=== PATIENT | male | born 1985 | race Caucasian/White ===

== ENCOUNTER 2025-09-26 11:33 | Emergency (ER) | payer OTHER, SELFPAY ==
--- NOTE | 2025-09-26 11:44 | ED_ITS ---
HPI - Skin/Abscess/Foreign Bdy General Chief complaint: Skin/Abscess/Foreign Body Stated complaint: poison oak patient presents to the [facility] with complaints of poison oak rash that began about 1 week ago. Patient noted very sensitive to this in usually needs an injection of steroids to get rid of this. Has been using topical h ydrocortisone as well as [id number] poison oak medications without relief of symptoms. Patient denies any tongue swelling, lip swelling, shortness of breath, or colored drainage from the area Related Data Home Medications ?Medication ?Instructions ?Recorded ?Confirmed ?Last Taken ?Type dextroamphetamine-amphetamine 10 09/26/25 Unknown Hi story mg tablet Allergies Allergy/AdvReac Type Severity Reaction Status Date / Time No Known Allergies Allergy Verified 09/26/25 11:47 Review of Systems Constitutional: Constitutional: Reports as per HPI, Denies chills, Denies fatigue, Denies fever(s) and Denies weakness Eyes: Eyes: Reports no additional eye complaints ENT: Reports system reviewed and no additional complaints, except as documented Cardiovascular: Cardiovascular: Reports no additional cardiovascular complaints Respiratory: Respiratory: Reports no additional respiratory complaints Gastrointestinal: Gastrointestinal: Reports no additional gastrointestinal complaints Genitourinary: Genitourinary: Reports no additional male genitourinary complaints Musculoskeletal: Musculoskeletal: Reports as per HPI, Denies back pain, Denies myalgias, Denies arthralgias and Denies joint swelling Integumentary/Breasts: Skin/Breast: Reports as per HPI, Reports pruritus, Reports erythema, Reports rash and Denies skin ulcer Neurologic: Reports as per HPI, Denies vertigo, Denies dizziness, Denies headache(s) and Denies weakness Psychiatric: Psychiatric: Reports no additional psychiatric complaints Endocrine: Endocrine: Reports no additional endocrine complaints Hematologic/Lymphatic: Hematologic/Lymphatic: Reports no additional hematologic/lymphatic complaints Allergic/Immunologic: Allergic/Immunologic: Reports no additional a llergic/immunologic complaints Exam Const: General: healthy appearing and no acute distress Nutritional Appearance: well nourished Orientation/consciousness: patient oriented x3 Limitations: no limitations HENMT: Mouth: Yes Normal oral and palatal mucosa present, Yes lip normal and Yes moist mucous membranes Eyes: Conjunctivae: conjunctivae normal EOM: EOMs intact bilaterally Direct Ophthalmoscopy: no photophobia Resp: Effort & Inspection: normal respiratory effort Auscultation: clear to auscultation bilaterally Cardio: Rate: regular rate Rhythm: regular rhythm Skin: Rashes: rash noted Wounds: no wounds Other: diffuse red patchy rash noted to bilateral arms, abdomen, back, right leg. no active drainage or crusting noted. Neuro: General: patient oriented x3 Speech: normal speech Gait exam (Neuro): Normal gait present Psych: Mental Status: mental status grossly normal Affect: normal affect Attitude: cooperative Course Course Level of Care: Express Care Visit MDM - Skin/Abscess/Foreign Bdy MDM Narrative Medical decision making narrative: Patient requested steroid injection. Given while at [facility]. Recommended oral steroids to start tomorrow. The patient was evaluated by myself in the [facility] care. History is obtained from patient who is an independent historian and physical exam was performed. Available medical records were reviewed at this time. Exam findings show no acute concerns or changes; patient is non-toxic appearing and is in no distress. Patient is appropriate for outpatient treatment and follow-up. I have evaluated and discussed social determinants of health with the patient that could potentially impact subsequent diagnosis and treatment plans. Differential diagnosis and treatment plan were discussed with the patient. Magdaleno lisa agrees with discussion and after shared medical decision making agrees with plan of care. All questions were answered to the patient's satisfaction. Differential Diagnosis Differential diagnosis: Likely abscess of skin or subcutaneous tissue, viral exanthem, urticaria, herpes zoster, cellulitis, insect bites, impetigo and contact dermatitis Medical Records Attestation: I reviewed the patient's medical records. Discharge Plan Discharge Clinical Impression: Allergic dermatitis due to poison oak Patient Disposition: Home Condition: Stable Instructions: Antibiotic Form, Contact Dermatitis (ED) Additional Instructions: Wash the area with soap and cool water only. Avoid scratching when possible to prevent worsening of the condition and disruption of the skin that could lead to bacterial infection To relieve itching, place a cool washcloth or some ice over the area that itches, rather than scratching Follow up with primary care provider or seek ER if you have trouble breathing, become hoarse, or start wheezing, develops belly cramps, vomiting or feel dizzy. Patient Language: Luxembourgish Prescriptions: New prednisone 10 mg tablet 10 mg PO DIRECTED Qty: 18 0RF Rx Instructions: take 3 tablets for 3 days, 2 tablets for 3 days, 1 tablet for 3 days triamcinolone acetonide 0.1 % cream 1 applic topical TID Qty: 80 0RF No Action dextroamphetamine-amphetamine 10 mg tablet Follow-up/Referrals: UNKNOWN,DOCTOR [Primary Care Provider] Time of Disposition: 11:58
--- OUTSIDE RECORDS SUMMARY | 2025-09-26 11:44 | XMS_ITS | Data Portability ---
Author Organization ELOISE Marino FERNANDEZ Address [address] [facility] ELOISE Pichardo [address] Assessment Encounter Date Assessment Date Assessment LastModified by Organization Details LastModified Time 06/10/2019 06/10/2019 Pt presents with c/o anxiety that is chronic and refractory to historical management. Reports that he has maintained psychotherapy and is interested in resuming medications as he has had consistent, increased anxiety with a panic attack at work this am. Reports EMS was called, he refused transport to hospital and is here for f/u: tmond Not available 06/10/2019 15:57:37 Plan of Treatment Reminders Order Date Submit Date Provider Last Modified By Organization Details Last Modified Time Details Appointments None record ed. Lab lipid panel, serum 2017 018 [facility], [address] [place] [address], [address], [place], [address], 8 16:36:19 CMP, serum or plasma 2017 018 [facility], [address] [place] [address], [facility] [address], [place], [address], 8 16:21:11 protei n electr ophore sis panel, serum or plasma 2017 018 [facility], [address] [place] [address], [address], [place], [address], 8 16:21:12 HbA1c (hemog lobin A1c), blood 2017 018 [facility], [address] [place] [address], [address], [place], [address], 8 16:21:12 CBC w/ auto diff 2017 018 [facility], [address], [address], [place], [address], 8 16:36:17 cultur e, aerobi c, wound 2017 018 kvalleroy [facility], [address], [address], [place], [address], 8 16:52:55 Referral cardio logist referr al 2017 018 [facility], [address], [address], 8 12:59:11 Procedures None record ed. Surgeries None record ed. Imaging None record ed. Medication Orders venlaf axine ER 75 mg capsul e,exte nded releas e 24 hr 2018 019 INTERFACE [facility][id number], [address], [place], [id number], 9 16:50:37 hydrox yzine HCl 25 mg tablet 2018 019 INTERFACE [facility] #[id number], [address], [place], [id number], 9 16:50:38 clonaz epam 1 mg tablet 2018 019 [email or web address] [facility] #04415, [address], [place], [id number], 9 16:45:40 venlaf axine ER 75 mg capsul e,exte nded releas e 24 hr 2018 019 [email or web address] [facility] #21526, [address], [place], [id number], 9 16:38:21 venlaf axine ER 150 mg capsul e,exte nded releas e 24 hr 2018 019 INTERFACE [facility] #13480, [address], [place], [id number], 9 13:52:44 clinda mycin HCl 300 mg capsul e 2017 018 [facility], [address] [place] [address], [id number], 9 11:26:06 Wellbu demetri SR 150 mg tablet , 12 hr sustai iesha-re lease 2017 018 [facility], [address] [place] [address], [id number], 9 11:26:42 hydrox yzine HCl 25 mg tablet 2017 018 [facility], [address] [place] [address], [id number], 9 11:26:16 Bactri m DS 800 mg-160 mg tablet 2017 018 [facility], [address] [place] [address], [id number], 9 11:26:30 triamc inolon e aceton sosa 0.1 % topica l cream 2017 018 [facility], [address] [place] [address], [id number], 8 11:45:41 Patient TargetsNo targets recorded. Patient Instructions Encounter Date Encounter Id Patient Instructions Last Modified By Organization Details Last Modified Time 03/21/2018 [id number] start abx keep RLE clean and dry go to ED if worsens f/u next week Not available 03/21/2018 13:52:33 f/u on RLE cellulitis Not available 03/21/2018 13:52:40 03/26/2018 [id number] tennis elbow: exercises amueth Not available 03/26/2018 17:01:00 golfer's elbow: exercises amueth Not available 03/26/2018 17:01:00 elbow: exercises amueth Not available 03/26/2018 17:01:00 A healthy lifestyle: care instructions amueth Not available 03/28/2018 13:02:10 06/28/2018 [id number] chest pain: care instructions [email or web address] Not available 07/03/2018 22:55:52 learning about staph infection [email or web address] Not available 06/28/2018 16:36:58 06/10/2019 [id number] PHILIP-7 anxiety scale* [email or web address] Not available 06/11/2019 12:42:56 -Always present to ER or Urgent Care with any progession of/alarming symptoms, significant changes in symptoms that are concerning or urgent matters. -Pt to call office with regard to changes if sx not improved or worsens -Discussed actions to take if develop feelings of hurting himself or someone else. -Advised of the number for the national suicide hotline: 7-061-YNLDSNH ( ) tmond Not available 06/10/2019 16:14:57 -Discussed POC; pt to f/u with PCP for further eval of sx, mood and concerns. Pt with severe anxiety; to maintain SNRI meterman and transition to non-benzo anxiolytic -Pt to follow up with routine f/u visit as discussed tmond Not available 06/10/2019 16:16:53 Reason for Referral [employer] Referral for Ch est pain Referring Physician: Jennie Moe, Family Medicine, Encounter Date: 06/28/2018 Results Created Date Observation Date Name Description Value Unit Range Abnormal Flag Note LastModifiedBy Organization Detail LastModifiedTime 03/21/20 18 03/26/2018 cultu re, aerob ic aerobic bacterial culture Final report abnormal Not Available [facility] ([facility]) [address] [facility] [address] [address], [place], [address], 03/26/2018 12:36:38 03/21/20 18 03/26/2018 cultu re, aerob ic result 1 Commen t abnormal Methi cilli n - resis tant Staph yloco ccus aureu s Heavy growt h Based on resis tance to oxaci llin this isola te would be resis tant to all curre ntly avail able beta- lacta m antim icrob ial agent s, with the excep tion of the newer cepha lospo rins with anti- MRSA activ ity, such as Cefta rolin e Not Available [facility] ([facility]) [address] [facility] [address], [place], [address], 03/26/2018 12:36:38 03/21/20 18 03/26/2018 cultu re, aerob ic antimicrobia l susceptibili ty Commen t S = Susce ptibl e; I = Inter media te; R = Resis tant P = Posit zeb; N = Negat zeb MICS are expre ssed in micro grams per mL Antib iotic RSLT# 1 RSLT# 2 RSLT# 3 RSLT# 4 Cipro floxa argentina S Clind amyci n S Eryth romyc in S Genta micin S Levof loxac in S Linez olid S Oxaci llin R Penic illin R Rifam pin S Tetra cycli ne S Trime thopr im/Cornejo lfa S Vanco mycin S Not Available [facility] ([facility]) [address] [facility] [address], [place], [address], 03/26/2018 12:36:38 03/21/20 18 03/22/[address] probl em request problem Commen t A speci men was recei shade for micro biolo gy/vi rolog y testi ng with eithe r an incor rect test numbe r or witho ut a writt en test numbe r. The speci men has been proce ssed accor ding to the defau lt polic y liste d in the Micro biolo gy [place] of the [facility]. Pleas e use the corre ct test numbe rs to assur e optim um proce ssing of the speci mens. Not Available [facility] ([facility]) [address] [place], [address], 03/26/2018 12:36:38 06/29/20 18 06/30/2018 CBC w/ auto diff WBC 7.0 x10e3 /uL 3.4-10 .8 Not Available [facility] ([facility]) [address] [place], [address], 07/01/2018 16:36:17 06/29/20 18 06/30/2018 CBC w/ auto diff RBC 4.48 x10e6 /uL 4.14-5 .80 Not Available [facility] ([facility]) [address] [place], [address], 07/01/2018 16:36:17 06/29/20 18 06/30/2018 CBC w/ auto diff hemoglobin 13.4 g/dL 13.0-1 7.7 Not Available [facility] ([facility]) [address] [place], [address], 07/01/2018 16:36:17 06/29/20 18 06/30/2018 CBC w/ auto diff hematocrit 39.0 % 37.5-5 1.0 Not Available [facility] ([facility]) [address] [place], [address], 07/01/2018 16:36:17 06/29/20 18 06/30/2018 CBC w/ auto diff MCV 87 fL 79-97 Not Available [facility] ([facility]) [address] [place], [address], 07/01/2018 16:36:17 06/29/20 18 06/30/2018 CBC w/ auto diff MCH 29.9 pg 26.6-3 3.0 Not Available [facility] ([facility]) [address] [facility] [address], [place], [address], 07/01/2018 16:36:17 06/29/20 18 06/30/2018 CBC w/ auto diff MCHC 34.4 g/dL 31.5-3 5.7 Not Available [facility] ([facility]) [address] [facility] [address], [place], [address], 07/01/2018 16:36:17 06/29/20 18 06/30/2018 CBC w/ auto diff RDW 14.0 % 12.3-1 5.4 Not Available [facility] ([facility]) [address] [facility] [address], [place], [address], 07/01/2018 16:36:17 06/29/20 18 06/30/2018 CBC w/ auto diff platelets 235 x10e3 /uL 150-37 9 Not Available [facility] ([facility]) [address] [facility], [place], [address], 07/01/2018 16:36:17 06/29/20 18 06/30/2018 CBC w/ auto diff neutrophils 38 % not estab. Not Available [facility] ([facility]) [address] [facility] [address], [place], [address], 07/01/2018 16:36:17 06/29/20 18 06/30/2018 CBC w/ auto diff lymphs 50 % not estab. Not Available [facility] ([facility]) [address] [facility] [address], [place], [address], 07/01/2018 16:36:17 06/29/20 18 06/30/2018 CBC w/ auto diff monocytes 10 % not estab. Not Available [facility] ([facility]) [address] [facility] [address], [place], [address], 07/01/2018 16:36:17 06/29/20 18 06/30/2018 CBC w/ auto diff eos 1 % not estab. Not Available [facility] ([facility]) [address] [facility] [address], [place], [address], 07/01/2018 16:36:17 06/29/20 18 06/30/2018 CBC w/ auto diff basos 1 % not estab. Not Available [facility] ([facility]) [address] [facility] [address], [place], [address], 07/01/2018 16:36:17 06/29/20 18 06/30/2018 CBC w/ auto diff immature cells [employer] Not Available [facility] ([facility]) [address] [facility] [address], [place], [address], 07/01/2018 16:36:17 06/29/20 18 06/30/2018 CBC w/ auto diff neutrophils (absolute) 2.7 x10e3 /uL 1.4-7. 0 Not Available [facility] ([facility]) [address] [facility], [place], [address], 07/01/2018 16:36:17 06/29/20 18 06/30/2018 CBC w/ auto diff lymphs (absolute) 3.5 x10e3 /uL 0.7-3. 1 above high normal Not Available [facility] ([facility]) [address] [facility] [address], [place], [address], 07/01/2018 16:36:17 06/29/20 18 06/30/2018 CBC w/ auto diff monocytes(ab solute) 0.7 x10e3 /uL 0.1-0. 9 Not Available [facility] ([facility]) [address] [place], [address], 07/01/2018 16:36:17 06/29/20 18 06/30/2018 CBC w/ auto diff eos (absolute) 0.1 x10e3 /uL 0.0-0. 4 Not Available [facility] ([facility]) [address] [place], [address], 07/01/2018 16:36:17 06/29/20 18 06/30/2018 CBC w/ auto diff baso (absolute) 0.1 x10e3 /uL 0.0-0. 2 Not Available [facility] ([facility]) [address] [facility] [place], [address], 07/01/2018 16:36:17 06/29/20 18 06/30/2018 CBC w/ auto diff immature granulocytes 0 % not estab. Not Available [facility] ([facility]) [address] [facility] [address], [place], [address], 07/01/2018 16:36:17 06/29/20 18 06/30/2018 CBC w/ auto diff immature grans (abs) 0.0 x10e3 /uL 0.0-0. 1 Not Available [facility] ([facility]) [address] [facility], [place], [address], 07/01/2018 16:36:17 06/29/20 18 06/30/2018 CBC w/ auto diff NRBC [employer] Not Available [facility] ([facility]) [address] [facility] [address], [place], [address], 07/01/2018 16:36:17 06/29/20 18 06/30/2018 CBC w/ auto diff hematology comments: [employer] Not Available [facility] ([facility]) [address] [facility] [address], [place], [address], 07/01/2018 16:36:17 06/29/20 18 06/30/2018 CMP, serum or plasm a glucose 98 mg/dL 65-99 Not Available [facility] ([facility]) [address] [place], [address], 07/01/2018 16:36:18 06/29/20 18 06/30/2018 CMP, serum or plasm a BUN 12 mg/dL 6-20 Not Available [facility] ([facility]) [address] [place], [address], 07/01/2018 16:36:18 06/29/20 18 06/30/2018 CMP, serum or plasm a creatinine 0.99 mg/dL 0.76-1 .27 Not Available [facility] ([facility]) [address] [facility] [place], [address], 07/01/2018 16:36:18 06/29/20 18 06/30/2018 CMP, serum or plasm a eGFR if nonafricn AM 102 mL/mi n/1.7 3 >59 Not Available [facility] ([facility]) [address] [facility] [place], [address], 07/01/2018 16:36:18 06/29/20 18 06/30/2018 CMP, serum or plasm a eGFR if africn AM 118 mL/mi n/1.7 3 >59 Not Available [facility] ([facility]) [address] [facility] [place], [address], 07/01/2018 16:36:18 06/29/20 18 06/30/2018 CMP, serum or plasm a BUN/creatini ne ratio 12 9-20 Not Available [facility] ([facility]) [address] [place], [address], 07/01/2018 16:36:18 06/29/20 18 06/30/2018 CMP, serum or plasm a sodium 140 mmol/ L 134-14 4 Not Available [facility] ([facility]) [address] [place], [address], 07/01/2018 16:36:18 06/29/20 18 06/30/2018 CMP, serum or plasm a potassium 4.6 mmol/ L 3.5-5. 2 Not Available [facility] ([facility]) [address] [place], [address], 07/01/2018 16:36:18 06/29/20 18 06/30/2018 CMP, serum or plasm a chloride 103 mmol/ L 96-106 Not Available [facility] ([facility]) [address] [place], [address], 07/01/2018 16:36:18 06/29/20 18 06/30/2018 CMP, serum or plasm a carbon dioxide, total 21 mmol/ L 20-29 Not Available [facility] ([facility]) [address] [facility] [place], [address], 07/01/2018 16:36:18 06/29/20 18 06/30/2018 CMP, serum or plasm a calcium 9.1 mg/dL 8.7-10 .2 Not Available [facility] ([facility]) [address] [facility] [place], [address], 07/01/2018 16:36:18 06/29/20 18 06/30/2018 CMP, serum or plasm a protein, total 6.7 g/dL 6.0-8. 5 Not Available [facility] ([facility]) [address] [facility] [address], [place], [address], 07/01/2018 16:36:18 06/29/20 18 06/30/2018 CMP, serum or plasm a albumin 4.4 g/dL 3.5-5. 5 Not Available [facility] ([facility]) [address] [facility] [address], [place], [address], 07/01/2018 16:36:18 06/29/20 18 06/30/2018 CMP, serum or plasm a globulin, total 2.3 g/dL 1.5-4. 5 Not Available [facility] ([facility]) [address] [place], [address], 07/01/2018 16:36:18 06/29/20 18 06/30/2018 CMP, serum or plasm a A/G ratio 1.9 1.2-2. 2 Not Available [facility] ([facility]) [address] [facility] [place], [address], 07/01/2018 16:36:18 06/29/20 18 06/30/2018 CMP, serum or plasm a bilirubin, total 1.1 mg/dL 0.0-1. 2 Not Available [facility] ([facility]) [address] [place], [address], 07/01/2018 16:36:18 06/29/20 18 06/30/2018 CMP, serum or plasm a alkaline phosphatase 73 IU/L 39-117 Not Available [facility]) [address] [place], [address], 07/01/2018 16:36:18 06/29/20 18 06/30/2018 CMP, serum or plasm a AST (SGOT) 61 IU/L 0-40 above high normal Not Available [facility] ([facility]) [address] [place], [address], 07/01/2018 16:36:18 06/29/20 18 06/30/2018 CMP, serum or plasm a ALT (SGPT) 102 IU/L 0-44 above high normal Not Available [facility] ([facility]) [address] [place], [address], 07/01/2018 16:36:18 06/29/20 18 06/29/2018 prote in elect ropho resis panel , serum or plasm a please note: Commen t Prote in elect ropho resis scan will follo w via compu ter, mail, or couri nabila lawson. Not Available [facility] ([facility]) [address] [place], [address], 07/01/2018 16:36:18 06/29/20 18 07/01/2018 prote in elect ropho resis panel , serum or plasm a albumin 4.0 g/dL 2.9-4. 4 Not Available [facility] ([facility]) [address] [place], [address], 07/01/2018 16:36:18 06/29/20 18 07/01/2018 prote in elect ropho resis panel , serum or plasm a kezeo-4-htow ulin 0.3 g/dL 0.0-0. 4 Not Available [facility] ([facility]) [address] [facility] [place], [address], 07/01/2018 16:36:18 06/29/20 18 07/01/2018 prote in elect ropho resis panel , serum or plasm a rcfzx-3-dctt ulin 0.5 g/dL 0.4-1. 0 Not Available [facility] ([facility]) [address] [facility] [place], [address], 07/01/2018 16:36:18 06/29/20 18 07/01/2018 prote in elect ropho resis panel , serum or plasm a beta globulin 1.0 g/dL 0.7-1. 3 Not Available [facility] ([facility]) [address] [facility] [place], [address], 07/01/2018 16:36:18 06/29/20 18 07/01/2018 prote in elect ropho resis panel , serum or plasm a gamma globulin 0.9 g/dL 0.4-1. 8 Not Available [facility] ([facility]) [address] [facility] [place], [address], 07/01/2018 16:36:18 06/29/20 18 07/01/2018 prote in elect ropho resis panel , serum or plasm a M-spike Not Observ ed g/dL not observ ed Not Available [facility] ([facility]) [address] [place], [address], 07/01/2018 16:36:18 06/29/20 18 07/01/2018 prote in elect ropho resis panel , serum or plasm a globulin, total 2.7 g/dL 2.2-3. 9 Not Available [facility] ([facility]) [address] [place], [address], 07/01/2018 16:36:18 06/29/20 18 07/01/2018 prote in elect ropho resis panel , serum or plasm a A/G ratio 1.5 0.7-1. 7 Not Available [facility] ([facility]) [address] [place], [address], 07/01/2018 16:36:18 06/29/20 18 07/01/2018 prote in elect ropho resis panel , serum or plasm a P E interpretati on, S Commen t The SPE patte rn appea rs essen tiall y unrem arkab le. Evide nce of monoc lonal prote in is not appar ent. Not Available [facility] ([facility]) [address] [place], [address], 07/01/2018 16:36:18 06/29/20 18 07/01/2018 prote in elect ropho resis panel , serum or plasm a pdf . Not Available [facility] ([facility]) [address] [place], [address], 07/01/2018 16:36:18 06/29/20 18 06/30/2018 lipid panel , serum cholesterol, total 168 mg/dL 100-19 9 Not Available [facility] ([facility]) [address] [facility] [place], [address], 07/01/2018 16:36:19 06/29/20 18 06/30/2018 lipid panel , serum triglyceride s 181 mg/dL 0-149 above high normal Not Available [facility] ([facility]) [address] [place], [address], 07/01/2018 16:36:19 06/29/20 18 06/30/2018 lipid panel , serum HDL cholesterol 26 mg/dL >39 below low normal Not Available [facility] ([facility]) [address] [place], [address], 07/01/2018 16:36:19 06/29/20 18 06/30/2018 lipid panel , serum VLDL cholesterol concepción 36 mg/dL 5-40 Not Available [facility] ([facility]) [address] [facility] [place], [address], 07/01/2018 16:36:19 06/29/20 18 06/30/2018 lipid panel , serum LDL cholesterol calc 106 mg/dL 0-99 above high normal Not Available [facility] ([facility]) [address] [facility] [address], [place], [address], 07/01/2018 16:36:19 06/29/20 18 06/30/2018 lipid panel , serum comment: [employer] Not Available [facility] ([facility]) [address] [facility] [address], [place], [address], 07/01/2018 16:36:19 06/29/20 18 06/30/2018 lipid panel , serum T. chol/HDL ratio 6.5 ratio 0.0-5. 0 above high normal T. Chol/ HDL Ratio Men Women 1/2 Avg.R isk 3.4 3.3 Avg.R isk 5.0 4.4 2X Avg.R isk 9.6 7.1 3X Avg.R isk 23.4 11.0 Not Available [facility] ([facility]) [address] [facility] [address], [place], [address], 07/01/2018 16:36:19 06/29/20 18 06/30/2018 HbA1c (hemo globi n A1c), blood hemoglobin A1C 5.0 % 4.8-5. 6 Predi abete s: 5.7 - 6.4 Diabe priya: >6.4 Glyce jorgito contr ol for adult s with diabe priya: <7.0 Not Available [facility] ([facility]) [address] [facility] [address], [place], [address], 07/01/2018 16:36:19 07/20/20 18 07/21/2018 hbcab (hepa titis B core Ab), igg+i gm, serum hep B core Ab, IgM Negati ve negati ve Not Available [facility] ([facility]) [address] [place], [address], 07/22/2018 06:35:25 07/20/20 18 07/21/2018 hbcab (hepa titis B core Ab), igg+i gm, serum hep B core Ab, tot Negati ve negati ve Not Available [facility] ([facility]) [address] [facility] [address], [place], [address], 07/22/2018 06:35:25 07/20/20 18 07/20/2018 hepat itis C Ab, signa l-to- cutof f, serum or plasm a comment: Commen t Non react zeb HCV antib fadia scree n is consi stent with no HCV infec tion, unles s recen t infec tion is suspe cted or other evide nce exist s to indic ate HCV infec tion. Not Available [facility] ([facility]) [address] [facility] [address], [place], [address], 07/22/2018 06:35:26 07/20/20 18 07/21/2018 hepat itis C Ab, signa l-to- cutof f, serum or plasm a HCV Ab <0.1 s/co_ ratio 0.0-0. 9 Not Available [facility] ([facility]) [address] [facility] [address], [place], [address], 07/22/2018 06:35:26 07/20/20 18 07/22/2018 heter ophil e Ab, quali tativ e latex agglu tinat ion, serum mononucleosi s test, qual Negati ve negati ve The sensi tivit y of Heter ophil e antib fadia testi ng is 80-90 %. Epste in Lee IgM testi ng offer s highe r sensi tivit y. Not Available [facility] ([facility]) [address] [facility], [place], [address], 07/22/2018 06:35:27 07/24/20 18 07/24/2018 XR, chest , 2 view No observ ation record ed. [facility] [address] [place], [address], 08/08/2018 12:18:21 07/24/20 18 07/24/2018 stres s echoc ardio gram No observ ation record ed. rosalba Not Available 2017 12:17:58 07/30/20 18 07/24/2018 exerc ise stres s echoc ardio gram No observ ation record ed. [facility] [address] [facility], [place], [address], 08/08/2018 10:57:21 07/30/20 18 07/24/2018 cardi ac stres s test No observ ation record ed. [facility], [place], [address], 08/08/2018 14:22:50 Result Notes None recorded. Problems Name Problem SNOMED Code Status Onset Date Resolution Date Notes Provider Name and Address Organization Details Recorded Time Gastroeso phageal reflux disease 349011275 [facility] 11:44:32 Depressiv e disorder 22031293 Completed 201606/10/2019 Removal Reason: Updated dx SIA LARES Attn: Accountin g,[address] [place], [address], [facility] 9 16:19:14 Mixed anxiety and depressiv e disorder 057581096 Active 2018 SIA LARES Attn: Accountin g[address] [place], [address], [facility] 9 16:18:57 Problem Notes None recorded. Procedures Surgical History Date Name Laterality Status Provider Name and Address Organization Details Recorded Time 03/21/2018 I&D completed LEONEL RAMESH Attn: Accounting[address] [place], [address], [facility] 03/21/2018 13:49:39 Imaging Results None recorded. Procedure Notes None recorded. Medical Equipment None Reported. Allergies No known drug allergies Medications Name Sig Start Date Stop Date Status Note LastModified by Organization Details LastModified Time hydrocodone 7.5 mg-ibuprofe n 200 mg tablet Take 1 tablet every 6 hours by oral route as needed. 07/31 completed Not Available Not Available Not Available venlafaxine ER 75 mg capsule,ext ended release 24 hr TAKE 3 CAPSULES BY MOUTH EVERY NIGHT AT BEDTIME 2018 active Not Available Not Available Not Avai lable clindamycin HCl 300 mg capsule Take 1 capsule 3 times a day by oral route. 06/10 completed Not Available Not Available Not Available azithromyci n 250 mg tablet TAKE 2 TABLETS (500 MG) BY ORAL ROUTE ONCE DAILY FOR 1 DAY THEN 1 TABLET (250 MG) BY ORAL ROUTE ONCE DAILY FOR 4 DAYS 01/22 completed Not Available Not Available Not Available Medrol (Reggie) 4 mg tablets in a dose pack Use as directed. 08/30 completed Not Available Not Available Not Available clonazepam 1 mg tablet Take 1 tablet twice a day by oral route for 30 days. 07/08 completed Not Available Not Available Not Available venlafaxine ER 150 mg capsule,ext ended release 24 hr Take 1 capsule every day by oral route for 21 days. 2018 active Not Available Not Available Not Avai lable Wellbutrin SR 150 mg tablet, 12 hr sustained-r elease Take 1 tablet twice a day by oral route. 06/10 completed Not Available Not Available Not Available sulfamethox azole 800 mg-trimetho prim 160 mg tablet Take 1 tablet twice a day by oral route for 20 days. 06/10 completed Not Available Not Available Not Available triamcinolo ne acetonide 0.1 % topical cream APPLY A THIN LAYER TO THE AFFECTED AREA(S) BY TOPICAL ROUTE 2 TIMES PER DAY 2017 active Not Available Not Available Not Avai lable amoxicillin 500 mg tablet Take 1 tablet every 8 hours by oral route for 10 days. 11/02 completed Not Available Not Available Not Available oxycodone-a cetaminophe n 5 mg-325 mg tablet Take 1 tablet every 6 hours by oral route as needed. 07/31 completed Not Available Not Available Not Available methocarbam ol 750 mg tablet Take 1 tablet every 4 hours by oral route as needed. 07/31 completed Not Available Not Available Not Available pantoprazol e 40 mg tablet,jaycee yed release Take 1 tablet every day by oral route for 30 days. 07/31 completed Not Available Not Available Not Available esomeprazol e magnesium 40 mg capsule,del ayed release 07/31 completed Not Available Not Available Not Available hydroxyzine HCl 25 mg tablet Take 1 tablet 3 times a day by oral route as needed. 2018 active Not Available Not Available Not Avai lable naproxen 500 mg tablet Take 1 tablet twice a day by oral route as needed. 06/10 completed Not Available Not Available Not Available Prilosec OTC 20 mg tablet,jaycee yed release Take 1 tablet every day by oral route as directed. active OTC Not Available Not Available No t Available duloxetine 30 mg capsule,del ayed release Take 1 capsule every day by oral route. 11/02 completed Not Available Not Available Not Available duloxetine 60 mg capsule,del ayed release Take 1 capsule every day by oral route for 90 days. 03/26 completed Not Available Not Available Not Available Vitals Date Recorded Body weight Body temperature Oxygen saturation Heart rate Respiratory rate Systolic And Diastolic Provider Name and Address Organization Details Last Updated DateTime 8 031362. 56 g 99 [degF] 98 % 93 /min 18 /min 114/82 mm[Hg] Tono Garcia MA [facility] 8 11:21:59 Date Recorded Body height Body mass index (BMI) Provider Name and Address Organization Details Last Updated DateTime 03/21/2018 177.8 cm 36.5 kg/m2 February [facility] 2017 14:58:02 Date Recorded Body height Body mass index (BMI) Body weight Body temperature Oxygen saturation Heart rate Respiratory rate Systolic And Diastolic Provider Name and Address Organization Details Last Updated DateTime 8 177.8 cm 36.5 kg/m2 766206. 26 g 98.7 [degF] 97 % 87 /min 16 /min 108/74 mm[Hg] Tono Garcia MA [facility] 8 16:36:56 Date Recorded Body height Body mass index (BMI) Body weight Oxygen saturation Heart rate Respiratory rate Body temperature Systolic And Diastolic Provider Name and Address Organization Details Last Updated DateTime 9 177.8 cm 37.2 kg/m2 515661. 52 g 99 % 84 /min 20 /min 98.7 [degF] 122/84 mm[Hg] [facility] 11:25:20 Date Recorded Body height Body mass index (BMI) Body weight Body temperature Oxygen saturation Heart rate Respiratory rate Systolic And Diastolic Provider Name and Address Organization Details Last Updated DateTime 8 177.8 cm 37.2 kg/m2 382481. 42 g 98.7 [degF] 98 % 85 /min 16 /min 110/62 mm[Hg] Tono Garcia MA [facility] 8 16:20:12 Date Recorded Body height Body mass index (BMI) Body weight Oxygen saturation Heart rate Body temperature Systolic And Diastolic Provider Name and Address Organization Details Last Updated DateTime 9 177.8 cm 36.5 kg/m2 992401. 26 g 98 % 121 /min 98.7 [degF] 122/86 mm[Hg] Stephanie gonzalez [facility] 9 16:34:09 Social History Question Answer Notes LastModified by Organizat ion Details LastModified Time Tobacco Smoking Status Former Smoker Gio Gavin MA [facility], [facility] 06/23/2016 17:29:02 How Much Tobacco Do You Chew? 2-4/day [email or web address] Information not available 06/23/2016 What Was The Date Of Your Most Recent Tobacco Screening? 01/22/2018 Information n ot available 05/29/2019 Are You Passively Exposed To Smoke? Yes [email or web address] Information not available 06/23/2016 How Many Years Have You Smoked Tobacco? 12 [email or web address] Information not available 06/23/2016 Sex: Unknown Functional Status Question Answer Note LastModified by Organization D etails LastModified Time What is your level of alcohol consumption? Moderate [email or web address] Information not available 06/23/2016 Mental Status None recorded. Family History Relationship Description Onset Age of this Age Resolved Age Notes LastModified by Organization Details LastModified Time Maternal Grandfather Diabetes mellitus [email or web address] Not available 2015 11:44:33 Maternal Grandfather Essential hypertension [email or web address] Not available 11:44:33 Father Hyperlipidem ia kvalleroy Not available 2015 11:44:33 Father Essential hypertension [email or web address] Not available 11:44:33 Medical History Condition Response Coronary Artery Disease N Other N High Blood Pressure N Atrial Fibrillation N Thyroid Problems N Kidney or Bladder Problems N Depression N COPD N Blood Clots N GI Problems N Skin Problems N Anemia N Heart Attack (VT) N Diabetes N Anxiety Disorder N Muscle, Joint, or Bone Problems N Seizures/Epilepsy N Acid Reflux (GERD) N Cancer N Stroke N Allergies N Asthma N High Cholesterol N Hepatitis N Liver Disease N Headaches N Osteoporosis N Heart Failure N Immunizations Vaccine Type Date Status Note Provider Nam e and Address Organization Details Recorded Time Tdap 11/05/2013 completed Jennie Moe MD Attn: [address] [place], [address], [facility] 06/28/2018 16:33:16 Past Encounters Encounter ID Performer Location Encounter Start Date Encounter Closed Date Diagnosis/Indication Diagnosis SNOMED-CT Code Diagnosis ICD10 Code Diagnosis IMO Codes Diagnosis Note [id number] Deon Reaves MD [address] [address] 06/23/2016 17:10:16 06/23/2016 17:40:52 Gastroesophageal reflux disease 850706255 K21.9 Chest pain 71113679 R07. 9 Strong family history of CAD. Will schedule for stress test. [id number] Deon Reaves MD [address] [address] 07/11/2016 16:56:06 07/11/2016 17:25:22 Acute low back pain 228755724 M54.5 Secondary to fall. He wants to defer PT at this time. Can take vicoprofen with otc ibuprofen. Acute thor acic back pain 574787429 M54.6 Secondary to fall. Neck pain 67371007 M54.2 Secondary to fall. [id number] Deon Reaves MD [address] [address] 07/18/2016 17:11:01 07/18/2016 17:46:05 Acute low back pain 951396119 M54.5 Continue methocarba mol, and vicoprofen prn. Acute thor acic back pain 425052771 M54.6 [id number] Deon Reaves MD [address] [address] 08/01/2016 11:33:32 08/01/2016 12:10:40 Closed fracture of shaft of fibula 36072802 S82.402D To see Orthopedic tomorrow. Anxiety disorder F41.9 Start cymbalta, and hydroxyzin e prn. [id number] Deon Reaves MD [address] [address] 07/31/2017 14:04:26 08/06/2017 15:54:52 Contact dermatitis caused by urushiol from [place] poison jose 650311764 L25.5 Anxiety disorder F41.9 Resume cymbalta. First child due February 02, 2018, so is stressed, he had stoped taking on his own. [id number] Deon Reaves MD [address] [address] 08/30/2017 16:02:22 09/04/2017 16:17:55 Abscess of skin and/or subcutaneous tissue 50257685 L02.91 [id number] Deon Reaves MD [address] [address] 11/02/2017 15:36:17 11/12/2017 12:46:31 Gastroesophageal reflux disease 277556531 K21.9 Anxiety disorder F41.9 Increase duloxetine to 60 mg daily. [id number] Deon Reaves MD [address] [address] 11/06/2017 15:34:50 11/12/2017 12:57:30 Acute upper respiratory infection 34622329 J06.9 Take otc meds for cough. [id number] Deon Reaves MD [address] [address] 01/22/2018 16:43:56 01/24/2018 14:41:41 Gastroesophageal reflux disease 326833597 K21.9 Anxiety disorder 0881621 06 F41.9 Continue duloxetine , and refer for counseling . Family his tory of ischemic heart disease 650984534 Z82.49 Will check EKG after has her baby, which is due in 2 weeks. Pain of elbow region 743 [address]6933 M25.451 [id number] LEONEL RAMESH [address] [address] 03/21/2018 11:10:40 03/21/2018 14:53:13 Cellulitis of lower limb 497391206 L03.119 attempted to drain wound, minimal amount of drainage expelledsm all bloody drainage present-ba ndaid placedsend for wound culturesta rt bactrim DS x 10 dayselevat ed extremityd iscussed sx to return or go to ED for including fever over 100.3, nausea, vomiting, sobf/u in 3-5 days for wound checkf/u on wound culture Contact dermatitis 86194 004 L25.9 try tcm cream to areas other than R lower extremityp ossible contact dermatitis and cellulitis f/u next week [id number] IWONA Mitchell NP [address] [address] 03/26/2018 16:30:24 03/28/2018 14:55:13 Depressive disorder 84551201 F32.9 Start wellbutrin . Continue hydroxyzin e prn F/u 1 month Pain of elbow region 743 65374 M25.521 Discussed conservati ve tx- RICE. Given exercises F/u prn Cellulitis of lower limb 069148441 L03.119 Continue bactrim DS x 10 daysKeep area clean and dryElevate d extremity [id number] Jennie Moe MD [address] [address] 06/28/2018 16:11:36 07/05/2018 12:18:17 Infection of skin and/or subcutaneous tissue 27365226 L08.9 Hyperlipid emia screening 395656985 Z13.220 Chest pain 48228364 R07. 2 pain and history not quite typical for cardiac ischemia, but will refer to cardiology for further evaluation , and see if there is any hyperlipid emia or diabetes that would worsen his risks. Immunodefi ciency disorder 606804663 D84.9 [id number] Crystal Hartman MD [address] [address] 06/10/2019 11:14:08 06/11/2019 08:22:30 Mixed anxiety and depressive disorder 278403195 F41.8 -PHQ9 and GAD7 completed and filed-Pt with marked anxiety according the GAD7, self reporting tool-Pt with Moderate depression according to the PHQ9, self-repor ting scale-Pt with long standing hx of anxiety; reports significan t family hx of emotional disorders- Will begin management with SNRI and anxiety medication managment Panic disorder 808449662 F41.0 -Pt with marked anxiety resulting in panic attacks that have recurrent, last episode worse, inexpected and worrisome for pt in terms of continued recurrence -Pt in today post panic attack that led to EMS being called to employment site-Sx correlate with mixed anxiety depressive disorder that is also significan t per the PHQ9 and GAD7 scales-Syed l manage with clonazepam for now as tx is initiated and managed with SNRI for meterman management -Pt to continue therapy and f/u with PCP in 4 weeks; Pt has been educated re: intended effects of medication s, therapeuti c response of medication r/t time frame [id number] Jennie Moe MD [address] [address] 07/08/2019 16:13:10 07/09/2019 12:57:57 Mixed anxiety and depressive disorder 904692474 F41.8 - Discussed increasing Venlafaxin e to 225mg- Will also stop Clonazepam and try Hydroxyzin e- F/U one month- Advised will try new medication if no improvemen t from increased dosage Health Concerns Section Related Observation LastModified by Organization Detai ls LastModified Time None Recorded Concern Status LastModified by Organization Details LastModified Time None Recorded Advance Directives Directive None Recorded Payers Insurance Date Sequence Insurance Name Policy Number Policy Brooks Covered Member ID Brooks Member ID Guarantor Name 02/01/2018 2 [facility] (PP[facility]) [id number] Jm Ruggiero [id number] Jm Ruggiero 08/05/2019 1 [employer] ([place]) [id number] Jm Ruggiero [id number] Jm Ruggiero 02/01/2018 1 [facility] [employer] [place] [facility] [id number] Jm Ruggiero [id number] Jm Ruggiero 11/26/2017 1 [employer] [id number] Jm Ruggiero [id number] Jm Ruggiero Notes Date Note Type Note Provider Name and Address Organization Details Recorded Time 03/21/20 18 text/htm l ROS as noted in the HPI pt presents for skin issues states for 2 days R knee has had a rash and feels warm thought he poison jose to his upper arms used otc calamine lotion, didnt help over last few weeks has had multiple areas break out in a rash to his upper arms and lower legs none of these areas itch has been 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 Has been taking bactrim as prescribed and wound is healing very well. Denies open sores, drainage, redness, swelling, pain. States that the duloxetine medication he was prescribed for depression caused adverse effects. He has very low libido and night sweats. He stopped taking the medication. Wants to try something else for anxiety and depressive symptoms. Reports his right outer elbow hurts. He denies trauma, but uses his arms daily. 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 Reports some numbness into his right hand. IWONA Mitchell NP Attn: [employer]ing[address] [place], [address], [facility] 03/28/2018 13:03:32 06/28/20 18 text/htm l Rash/Skin LesionReported by PatientHPIFor quality, patient reportspainful,red,multiple, andspreading. For location, patient reportsface,arms, andlegs. For severity, patient reportsmoderate. For onset/timing, patient reportsrecurring. For context, patient reportsno new detergents or skin products,no one else with similar rash, andnot scratching. For alleviating factors, patient reportsnothing gives relief. For aggravating factors, patient reportsclothing,exercise, andsun exposure. For associated symptoms, patient reportsno fever,no cold symptoms,no nausea,no vomiting,no diarrhea,no urinary symptoms,no chills,no fatigue, andno change in weight. Angina/Chest PainReported by PatientHPIFor location, patient reportsradiates to the jaw,radiates to the left arm, andradiates to the neckbut reportsepigastrium,midsternal, andleft substernal. For quality, patient reportspressureandaching. For context, patient reportsexertional,at rest,occurs with emotional stress, andoccurs with physical stress. For aggravating factors, patient reportsworse with activity,worse with stress/emotional upset,worse with bending forward, andworse with position change. For associated symptoms, patient reportschest discomfort,shortness of breath,exertional dyspnea,decrease in exercise capacity,fatigue,palpitations, dizziness,diaphoresis, andlightheadedness. For severity, patient reportsmoderate. For duration, patient reportslasts minutesandtypical duration is 2-4 minutes. For onset/timing, patient reportsgradual onset. For alleviating factors, patient reportsrelieved with rest,relieved with position change, andrelieved with sitting.ROS as noted in the HPI Jennie Moe MD Attn: Accounting[address] [facility], [place], [address], [facility] 07/03/2018 23:04:25 06/10/20 19 text/htm l Psychiatry AnxietyReported by PatientATHARROW[facility] HPIFor anxiety quality, patient reportsfearfulandexcessive worry. For anxiety context, patient reportsmajor life stressors,family problems,bereavement,etoh use, andtobacco use. For anxiety associated symptoms, patient reportsanxious or nervous,fearful,anticipatory fears,excessive worry,multiple worries,inability to control worry,can't relax,restless,irritable, andpanic attacks. For timing of symptoms, patient reportschronicandconstant. For anxiety duration, patient reportsage of onset 24. For anxiety severity, patient reportssevere,philip 7 score: 21, andworse. Anxiety/DepressionReported by PatientHPIFor quality, patient reportsincreased anxietyandpanic symptoms. For severity, patient reportsinterference with household activities,interference with sleep, andinterference with workbut reportsdenies suicidal ideationsandable to maintain relationships. For context, patient reportsmajor life stressors. For associated symptoms, patient reportsweight gain (___ lbs),depression,loneliness,ins omnia,sleep disturbances,anhedonia,sleepin g more (hypersomnia),despair/hopeless ness, anddecreased effectiveness/productivitybut reportsdenies homicidal ideations,no crying spells,no isolation,no apathy, andmaintaining functionality. For duration, patient reportsstarted:. For onset/timing, patient reportsgradual. Psychiatry DepressionReported by PatientDepression HPIFor depression quality, patient reportsirritable,anhedonia, andlacks motivation. For depression associated symptoms, patient reportsanhedonia or lack of motivation,dysphoria or highly irritable,sleep disturbances,negative or guilty cognitions, andemotional lability or mood swingsbut reportshas interests and is active,appetite good,no significant weight change,energy good,positive sense of self,no difficulty concentrating,no noticeable lethargy or agitation,no suicidal thoughts,no psychosis,no monique,no substance problems, andno difficulty functioning. For timing of symptoms, patient reportschronic,constant, andmore than half the time. For depression duration, patient reportsage of onset 24. For depression context, patient reportsmajor life stressors,family problems,bereavement, andtobacco use. For depression severity, patient reportsmoderate.ROS as noted in the HPI SIA LARES Attn: Accounting[address] [place], [address], [facility] 06/10/2019 16:22:30 07/08/20 19 text/htm l ROS as noted in the HPI Patient here for medication follow up. He states he feels the medication is working well, but reports he is still having frequent panic attacks. He states he has not had any major panic attacks. He reports a recent one where the ambulance had to be called. He states he has not had any that severe, but they are still frequent. He states he had one on the way to work today and it went away once he got to work. He reports he does not feel the Clonazepam medication is working so he rarely takes it. He denies SI or HI. MARQUES LIANG NP-C Attn: Accounting[address] [facility], [place], [address], [facility] 07/09/2019 09:46:57
--- OUTSIDE RECORDS SUMMARY | 2025-09-26 11:44 | XMS_ITS | Data Portability ---
Author Organization [place] [facility], Main Office Address [address] [place] [address] Care Team Providers Care Paper Colorer Name Role Phone JEAN MCCURDY Primary Care Provider [phone] JEAN MCCURDY Referring Provider Assessment Encounter Date Assessment Date Assessment LastModified by Organization Details LastModified Time 12/26/2023 12/26/2023 38 year old male presents for his right hand. He reports pain at the base of his thumb which has been going on for about 2 years, getting progressively worse. 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 Pain is worse at the end of the day. He has a lump at the base of the thumb which is painful. He has taken ibuprofen as well as meloxicam which has not helped. Denies any acute injury ROS per questionnaire Tenderness at the thumb CMC, palpable osteophytes. Positive grind. SILT. Brisk cap refill, 2+ radial pulse. Full finger extension and closed fist. 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 We gave him a thumb spica brace. Since meloxicam did not work well for him but ibuprofen did, we will telectedry changing him to celebrex. We also discussed cortisone injection into the thumb CMC, and he to proceed with that. Tolerated well. Follow up in 6-8 weeks. Not available 01/15/2024 21:28:09 02/27/2024 02/27/2024 [age] year male who presents follow-up of his right thumb CMC arthritis. We have been treating him conservatively with anti-inflammatori es, bracing, and a cortisone injection at his last visit December. He reports that he had significant improvement, but then he started doing more with his hand, and it got worse again. He currently rates his pain as 7/10. He stopped using the brace because he felt like he was limited by it. He returns today wanting another injection. He is tenderness palpation of the CMC of the thumb. Positive grind. Sensation intact to light touch, 2+ radial pulse. We discussed that for his CMC arthritis, we will continue conservative management. It is too soon to repeat the injection as it has been about 2 months. 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 He may follow-up in 1-2 months for a repeat cortisone injection, otherwise he states that he wants to wait until the winter to consider any sort of procedure. Not available 02/27/2024 16:50:57 11/12/2024 11/12/2024 HPI: 38 year old male who presents follow-up of his right thumb CMC arthritis. We have been treating him conservatively with anti-inflammatori es, bracing, and a cortisone injection. He was last evaluated by on February 06. The patient reports that his hand has worsened since his last visit. His last injection was in December 2023, which provided relief for 2 to 3 months. He currently rates his pain as a 5 out of 10. He takes ibuprofen as needed. Has tried meloxicam with minimal relief. During his last visit, he was prescribed Celebrex, which he did not take. He denies any acute injury. He hasn't used his brace since August because he lost it. He returns today to discuss the next steps. 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 No acute distress. Inspection: No evidence of swelling, erythema, bruising. Palpation: Tenderness at the thumb CMC, palpable osteophytes. Special Test: Positive Grind test. Motor: 5/5 strength Sensation: Sensation intact. Assessment & Plan: We discussed that we can continue with conservative management or could consider surgery. Options being CMC joint fusion plate, which reduce motion but maintain hearing aide technician strength, CMC arthroplasty, which would reduce hearing aide technician strength or CMC arthrodesis, which would limit motion. If he chooses CMC joint fusion plate we would refer him to hand specialist. He would like to continue with conservative management. Injection given today. Advised to get another thumb spica splint and try voltaren gel. PT ordered. To assess if it will help improve range of motion and reduce symptoms. Next visit get an xray to evaluate any progression of arthritis. Follow Up: As needed. Can come back in 3 months for another injection. All questions were answered. Patient verbalized understanding of treatment plan [email or web address] Not available 11/12/2024 13:05:12 Plan of Treatment Reminders Order Date Submit Date Provider Last Modified By Organization Details Last Modified Time Details Appointments None recorded. Lab None recorded. Referral physical therapist referral - Please contact pt to schedule for R hand, CMC arthritis. Thanks 2024 025 ALANNA [facility] - [address], [facility] [address], [place], [address], 5 16:00:10 Procedures injection/a spiration joint/bursa (PROC) 2024 025 [email or web address] In-Office Order, Internal Use Only DO Not Attach Compendium DO Not Attach Compendium, Do Not Delete/merge, [id number] 5 09:58:02 Surgeries None recorded. Imaging XR, hand, 3 or more view 2023 024 [facility] [place], [address], [place], [address], 4 00:20:02 Medication Orders bupivacaine HCl 0.5 % (5 mg/mL) injection solution [address] [id number], [address], [place], [id number], 5 11:58:10 Kenalog 10 mg/mL suspension for injection [email or web address] [id number], [address], [place], [id number], 5 11:58:10 celecoxib 200 mg capsule 2023 024 [email or web address] [id number], [address], [place], [phone], 4 20:48:30 Patient TargetsNo targets recorded. Patient InstructionsNo instructions recorded. Reason for Referral Physical Therapist Referral for Pain of right hand CMC arthritis Please contact pt to schedule for R hand, CMC arthritis. Thanks Referring Physician: Linda Becerra, Orthopedic Surgery, Encounter Date: 11/12/2024 Results Created Date Observation Date Name Description Value Unit Range Abnormal Flag Note LastModifiedBy Organization Detail LastModifiedTime 12/26/19 24 XR, hand, 3 or more view No observ ation record ed. [email or web address] [facility] [place] [address] [facility] [address], [place], [address], 12/26/2023 15:47:51 Result Notes None recorded. Problems Name Problem SNOMED Code Status Onset Date Resolution Date Notes Provider Name and Address Organization Details Recorded Time Pain of right hand 7032633610335 09 Active 2023 CRSITI Harrell [facility] [employer] 4 15:47:52 Arthritis of first carpometaca rpal joint of right hand 6797411960752 100 Active 2024 Linda Becerra PA-C [address], [place], [address], [employer] 5 13:05:37 Problem Notes None recorded. Procedures Surgical History Date Name Laterality Status Provider Name and Address Organization Details Recorded Time 4 Ortho - Cortisone Injection completed Virgilio Perez MD [address], [place], [address], [employer] 01/15/2024 21:28:24 Hand completed CRISTI Harrell [employer] [facility] 12/26/2023 15:46:53 Imaging Results None recorded. Procedure Notes None recorded. Medical Equipment None Reported. Medications Name Sig Start Date Stop Date Status Note LastModified by Organization Details LastModified Time celecoxib 200 mg capsule TAKE 1 CAPSULE BY MOUTH EVERY DAY active Not Available Not Available No t Available meloxicam 15 mg tablet TAKE 1 TABLET BY MOUTH EVERY DAY active Not Available Not Available No t Available bupivacaine HCl 0.5 % (5 mg/mL) injection solution Take 2 mL by injection route. 2024 active Not Available Not Available Not Avai lable dextroamphe tamine-amph etamine 10 mg tablet TAKE 1 TABLET BY MOUTH FOUR TIMES DAILY NEEDED active Not Available Not Available No t Available acetaminoph en 300 mg-codeine 30 mg tablet TAKE 1 TABLET BY MOUTH EVERY 4 HOURS NEEDED active Not Available Not Available No t Available Kenalog 10 mg/mL suspension for injection Take 1 mL by injection route. 2024 active [facility]: [phone] [phone] Not Available Not Available Not Available cephalexin 500 mg capsule TAKE 1 CAPSULE BY MOUTH FOUR TIMES DAILY 02/18 completed Not Available Not Available Not Available diclofenac sodium 75 mg tablet,jaycee yed release TAKE 1 TABLET BY MOUTH TWICE DAILY active Not Available Not Available No t Available methylpredn isolone 4 mg tablets in a dose pack FOLLOW PACKAGE DIRECTION S 02/18 completed Not Available Not Available Not Available dextroamphe tamine-amph etamine 5 mg tablet TAKE 1 TABLET BY MOUTH TWICE DAILY active Not Available Not Available No t Available Vitals Date Recorded Body height Body mass index (BMI) Body weight Provider Name and Address Organization Details Last Updated DateTime 11/12/2024 180.34 cm 30.7 kg/m2 01458.32 g Loren Estrada [facility] 11/12/2024 09:26:50 Date Recorded Body height Body mass index (BMI) Body weight Provider Name and Address Organization Details Last Updated DateTime 12/26/2023 180.34 cm 32.8 kg/m2 111736.21 g Roxanne Linn [facility] [employer] [facility] 12/26/2023 15:45:35 Date Recorded Body height Body mass index (BMI) Body weight Provider Name and Address Organization Details Last Updated DateTime 02/27/2024 180.34 cm 30.7 kg/m2 54928.32 terry Estrada [facility] [employer] [facility] 02/27/2024 16:07:28 Social History Question Answer Notes LastModified by Organizat ion Details LastModified Time Tobacco Smoking Status Former Smoker Roxanne Linn CRISTI sallie, [facility] [employer] [facility] 12/26/2023 15:46:33 What Was The Date Of Your Most Recent Tobacco Screening? 12/26/2023 [email or web address] Information not available 12/26/2023 Sex: Unknown Functional Status Question Answer Note LastModified by Organization D etails LastModified Time What is your level of alcohol consumption? Heavy [email or web address] Information not available 12/26/2023 Mental Status None recorded. Family History Relationship Description Onset Age of this Age Resolved Age Notes LastModified by Organization Details LastModified Time Paternal Grandfather Heart disease Not available 2023 15:46:14 Medical History No medical history recorded. Past Encounters Encounter ID Performer Location Encounter Start Date Encounter Closed Date Diagnosis/Indication Diagnosis SNOMED-CT Code Diagnosis ICD10 Code Diagnosis IMO Codes Diagnosis Note [id number] Virgilio Perez MD [facility] [place] [address] [place] [address] 12/26/2023 15:02:16 12/26/2023 16:55:04 Pain of right hand 1373747269 40771 M79.718 [id number] Virgilio Perez MD [facility] [place] [address] [place] [address] 02/27/2024 15:53:49 02/27/2024 16:49:25 Pain of right hand 4474753056 90872 M79.259 [id number] Virgilio Perez MD [facility] [place] [address] [place] [address] 11/12/2024 09:21:10 11/12/2024 10:09:01 Pain of right hand 4944671644 64676 M79.641 Arthritis of first carpometacarpal joint of right hand 2189311266 269232 M13.841 Health Concerns Section Related Observation LastModified by Organization Detai ls LastModified Time None Recorded Concern Status LastModified by Organization Details LastModified Time None Recorded Advance Directives Directive None Recorded Payers Insurance Date Sequence Insurance Name Policy Number Policy Brooks Covered Member ID Brooks Member ID Guarantor Name 01/02/2025 1 [facility] [id number] Jm Ruggiero [id number] Jm Ruggiero
--- OUTSIDE RECORDS SUMMARY | 2025-09-26 11:44 | XMS_ITS | Clinical Summary ---
Author Organization [facility] Address [address] [place] [address] Care Team Providers Care Inspector Mechanical Name Role Phone Jennie Moe MD Primary Care Provider [phone] Valerio Valdes MD Unavailable [phone] Allergies No known active allergies Medications omeprazole 20 MG capsule Take 1 capsule (20 mg total) by mouth every morning. 07/12/2018 Active Active Problems Problem Noted Date Diagnosed Date Chest pain in adult 07/10/2018 Depressive disorder Family History Medical History Relation Comments Hyperlipidemia Father Hypertension Father Diabetes Maternal Grandfather Hypertension Maternal Grandfather Relation Status Comments Father Maternal Grandfather Social History Tobacco Use Types Packs/Day Years Used Date Smoking Tobacco: Former Cigarettes Smokeless Tobacco: Never Alcohol Use Standard Drinks/Week Comments Yes 0 (1 standard drink = 0.6 oz pur e alcohol) Sex and Gender Information Value Date Recorded Sex Assigned at Not on file Legal Sex Male 1:39 PM CDT Gender Identity Not on file Sexual Orientation Not on file Occupation Industry Job Start Date Job End Date Not on file Not on file Not on file Not on file Last Filed Vital Signs Vital Sign Reading Time Taken Comments Blood Pressure 120/82 07/12/2018 8:08 AM CDT Pulse 75 07/12/2018 8:08 AM CDT Temperature - - Respiratory Rate - - Oxygen Saturation 99% 07/12/2018 8:08 AM CDT Inhaled Oxygen Concentration - - Weight 115.7 kg (255 lb) 07/12/2018 8:08 AM CDT Height 180.3 cm (5' 11) 07/12/2018 8:08 AM CDT Body Mass Index 35.57 07/12/2018 8:08 AM CDT Plan of Treatment Health Maintenance Due Date Last Done Comments Annual Physical 1990 Hepatitis C 2005 DTaP, Tdap and Td Vaccines ( 1 - Tdap) 2006 Hepatitis B Vaccines (1 of 3 - 19+ 3-dose series) 2006 HPV Vaccines (1 - 3-dose SCD M series) 2014 COVID-19 Vaccine (1 - 2024-2 6 season) 2025 Influenza Adult (#1) 2025 Hepatitis A Vaccines Aged Out No long er eligible based on patient's age to complete this topic Meningococcal B Vaccine Aged Out No l onger eligible based on patient's age to complete this topic Meningococcal Vaccine Aged Out No erin rea eligible based on patient's age to complete this topic Pneumococcal Vaccine: Pediat rics (0 to 5 Years) and At-Risk Patients (6 to 49 Years) Aged Out No longer eligible b ased on patient's age to complete this topic RSV Immunizations Under 20 Months Aged Out No longer eligible based on patient's age to complete this topic Insurance [facility] Care Teams Inspector Mechanical Relationship Specialty Start Date End Date Jennie Moe MD [facility] [address] [place] [address] PCP - General FAMILY PRACTICE 07/05/18 Valerio Valdes MD [address] [facility] [address] [place] [phone] [place] [employer] CARDIOVASCULAR DISEASE 07/11/18
--- OUTSIDE RECORDS SUMMARY | 2025-09-26 11:44 | XMS_ITS | Continuity of Care Document ---
Author Organization [place] [facility] Address [address] [place] [address] Care Team Providers Care Clinical Nutrition Manager Name Role Phone MARY MCCURDY Referring Provider [phone] MARY MCCURDY Primary Care Provider LO CANTRELL Orthopedic Surgeon Assessment Encounter Date Assessment Date Assessment LastModified by Organization Details LastModified Time 08/31/2025 08/31/2025 Patient is followed by VIKKI who is currently out of the office on leave. [email or web address] Not available 08/28/2025 11:04:10 Plan of Treatment Reminders Order Date Submit Date Provider Last Modified By Organization Details Last Modified Time Details Appointments None recorded. Lab drug screen, urine 2024 025 [facility] ([facility]), [address] [place] [address], [address], 16:52:35 Referral hand surgeon referral 2024 [email or web address] 3 Jose Cruz [facility], [address] [facility], [address], [address], 14:18:06 Procedures None recorded. Surgeries None recorded. Imaging None recorded. Medication Orders dextroamph etamine-am phetamine ER 30 mg 24hr capsule,ex tend release 2024 025 [id number], [address], [place], [phone], 16:59:41 dextroamph etamine-am phetamine 20 mg tablet 2024 025 [id number], [address] [place], [place], [phone], 16:59:40 Patient TargetsNo targets recorded. Patient Instructions Encounter Date Encounter Id Patient Instructions Last Modified By Organization Details Last Modified Time 08/31/2025 [id number] A healthy lifestyle: care instructions [email or web address] Not available 08/31/2025 16:59:33 Reason for Referral Hand Surgeon Referral for Pa in in right thumb Referring Physician: Adilia Ruelas, Family Medicine, Encounter Date: 08/31/2025 Results Created Date Observation Date Name Description Value Unit Range Abnormal Flag Note LastModifiedBy Organization Detail LastModifiedTime 08/31/2008/31/2025 drug scree n, urine Amphetamines : negati ve Not Available [facility] [address], [address], 08/31/2025 16:35:23 08/31/2008/31/2025 drug scree n, urine Cannabinoids : negati ve Not Available [facility] [address], [address], 08/31/2025 16:35:23 08/31/2008/31/2025 drug scree n, urine Cocaine: negati ve Not Available [facility] [address], [address], 08/31/2025 16:35:23 08/31/2008/31/2025 drug scree n, urine Opiates: negati ve Not Available [facility] [address], [address], 08/31/2025 16:35:23 08/31/2008/31/2025 drug scree n, urine Phenocyclidi ne: negati ve Not Available [facility] [place] [address] [facility] , [place], [address], 08/31/2025 16:35:23 08/31/20 25 08/31/2025 drug scree n, urine Barbiturates : negati ve Not Available [facility] [place] [address] [place], [place] [address] , [place], [address], 08/31/2025 16:35:23 08/31/2008/31/2025 drug scree n, urine Benzodiazepi jeovany: negati ve Not Available [facility] [place] [address] [place], [place] [address] [place], [address], 08/31/2025 16:35:23 08/31/2008/31/2025 drug scree n, urine Ethanol: negati ve Not Available [facility] [address] , [place], [address], 08/31/2025 16:35:23 08/31/20 25 08/31/2025 drug scree n, urine Hallucinogen s: negati ve Not Available [facility] [place] [address] [place], [place] [address] [place], [address], 08/31/2025 16:35:23 08/31/20 25 08/31/2025 drug scree n, urine Inhalants: negati ve Not Available [facility] [place] [address] [place], [place] [address] [place], [address], 08/31/2025 16:35:23 08/31/20 25 08/31/2025 drug scree n, urine Anabolic Steroids: negati ve Not Available [facility] [address], [address], 08/31/2025 16:35:23 08/31/20 25 08/31/2025 drug scree n, urine Other: negati ve Not Available [facility] [address], [address], 08/31/2025 16:35:23 Result Notes None recorded. Problems Name Problem SNOMED Code Status Onset Date Resolution Date Notes Provider Name and Address Organization Details Recorded Time Acid reflux 061713980 Active 2018 Mary Mccurdy NP [address] [facility] [address], [place], [address], [facility] 3 11:06:10 Hyperlipide selam 01527958 Active 2022 Mary Mccurdy NP [address] [facility] [address], [place], [address], [facility] 3 10:14:30 Attention deficit hyperactivi ty disorder 707364983 Active 2023 Mary Mccurdy NP [address] [facility] [address], [place], [address], [facility] 4 16:51:37 Arthritis of joint of right hand Active 2024 Mary Mccurdy NP [address] [facility] [address], [place], [address], [facility] 5 16:33:23 Pain of right hand 7809572247884 09 Active 2024 Ama Yates null, [facility] 5 09:35:24 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 Medical Equipment None Reported. Allergies No known drug allergies Medications Name Sig Start Date Stop Date Status Note LastModified by Organization Details LastModified Time celecoxib 200 mg capsule TAKE 1 CAPSULE BY MOUTH EVERY DAY 07/15 completed Not Available Not Available Not Available prednisone 10 mg tablet 08/09 completed Not Available Not Available Not Available venlafaxine ER 75 mg capsule,ext ended release 24 hr TK 3 CS PO QHS 08/05 completed Not Available Not Available Not Available venlafaxine 75 mg tablet TAKE 1 TABLET BY MOUTH EVERY DAY 06/06 completed Not Available Not Available Not Available trazodone 50 mg tablet TK 1 T PO QD 08/05 completed Not Available Not Available Not Available meloxicam 15 mg tablet TAKE 1 TABLET BY MOUTH EVERY DAY 12/10 completed Not Available Not Available Not Available dextroamphe tamine-amph etamine 10 mg tablet TAKE 3 TABLETS BY MOUTH EVERY MORNING AND TAKE 2-3 TABLETS BY MOUTH EVERY DAY AT NOON NEEDED 08/31 completed Not Available Not Available Not Available clonazepam 1 mg tablet TK 1 T PO BID FOR 30 DAYS 10/07 completed Not Available Not Available Not Available venlafaxine ER 150 mg capsule,ext ended release 24 hr TAKE 1 CAPSULE BY MOUTH DAILY 12/08 completed Not Available Not Available Not Available acetaminoph en 300 mg-codeine 30 mg tablet TAKE 1 TABLET BY MOUTH EVERY 4 HOURS NEEDED 09/20 completed Not Available Not Available Not Available Kenalog 40 mg/mL suspension for injection 60 mg IM x 1 07/15 completed Not Available Not Available Not Available alprazolam 0.5 mg tablet TAKE 1 TABLET BY MOUTH DAILY NEEDED 12/08 completed Not Available Not Available Not Available amoxicillin 875 mg tablet Take 1 tablet every 12 hours by oral route with meals for 7 days. 12/08 completed Not Available Not Available Not Available cephalexin 500 mg capsule TAKE 1 CAPSULE BY MOUTH FOUR TIMES DAILY 09/20 completed Not Available Not Available Not Available dextroamphe tamine-amph etamine 20 mg tablet TAKE 1 TABLET BY MOUTH EVERY DAY active Not Available Not Available No t Available omeprazole 20 mg capsule,del ayed release Take 1 capsule every day by oral route. 04/13 completed OTC Not Available Not Available Not Available diclofenac sodium 75 mg tablet,jaycee yed release TAKE 1 TABLET BY MOUTH TWICE DAILY 07/15 completed Not Available Not Available Not Available hydroxyzine HCl 25 mg tablet TK 1 T PO TID PRN 06/28 completed Not Available Not Available Not Available methylpredn isolone 4 mg tablets in a dose pack FOLLOW PACKAGE DIRECTION S 12/10 completed Not Available Not Available Not Available dextroamphe tamine-amph etamine ER 30 mg 24hr capsule,ext end release TAKE 1 CAPSULE BY MOUTH EVERY DAY active Not Available Not Available No t Available dextroamphe tamine-amph etamine 5 mg tablet TAKE 1 TABLET BY MOUTH TWICE DAILY 12/28 completed Not Available Not Available Not Available amoxicillin 875 mg-potassiu m clavulanate 125 mg tablet TAKE 1 TABLET BY MOUTH TWICE DAILY FOR 7 DAYS 02/25 completed Not Available Not Available Not Available cyclobenzap rine 5 mg tablet TK 1 T PO Q 8 H PRN BACK SPASMS 08/05 completed Not Available Not Available Not Available rosuvastati n 20 mg tablet TAKE 1 TABLET BY MOUTH EVERY DAY IN THE EVENING 09/20 completed Not Available Not Available Not Available Prilosec 08/09 completed OTC Not Available Not Available Not Available Vitals Date Recorded Body height Body mass index (BMI) Body weight Body temperature Heart rate Oxygen saturation Pain severity - 0-10 verbal numeric rating [Score] - Reported Systolic And Diastolic Provider Name and Address Organization Details Last Updated DateTime 5 180.34 cm 28.6 kg/m2 98520.5 4 g 98.4 [degF] 91 /min 98 % 4 120/74 mm[Hg] Maya Meliton [facility] 5 16:28:00 Social History Question Answer Notes LastModified by Organizat ion Details LastModified Time Tobacco Smoking Status Never Smoker Not Available [facility] 11/12/2022 18:59:35 What Is Your Level Of Caffeine Consumption? Occasional [id number] Information not available 11/12/2022 How Much Tobacco Do You Chew? 2-4/day [id number] Information not available 11/12/2022 In The 14 Days Before Symptom Onset, Have You Had Close Contact With A Laboratory-confirm ed COVID-19 While That Case Was Ill? No Information n ot available 12/21/2022 In The 14 Days Before Symptom Onset, Have You Had Close Contact With A Person Who Is Under Investigation For COVID-19 While That Person Was Ill? No Information not available 12/21/2022 What Was The Date Of Your Most Recent Tobacco Screening? 08/31/2025 Information not available 08/31/2025 Have You Ever Been Counseled For Unhealthy Alcohol Use? Yes Information not available 02/25/2025 Has Tobacco Cessation Counseling Been Provided? Yes Information not available 07/15/2024 On What Date Was Tobacco Cessation Counseling Provided? 02/25/2025 Information not available 02/25/2025 Have You Recently Traveled Abroad? No Information not available 12/21/2022 How Many Days In The Past Year Have You Consumed 5 Or More Drinks? 12 Information not available 02/25/2025 How Many Years Have You Used Smokeless Tobacco? 20 Information n ot available 04/13/2025 Sex: Unknown Functional Status Question Answer Note LastModified by Organizat ion Details LastModified Time Do you use any illicit or recreational drugs? No Information not available 08/31/2025 Do you or have you ever used any other forms of tobacco or nicotine? No Information not available 03/17/2025 What is your level of alcohol consumption? Moderate [email or web address] Information not available 02/25/2025 Do you or have you ever used smokeless tobacco? Former smokeless tobacco user [email or web address] Information not available 12/08/2022 Are you currently employed? 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 [id number] Information not available 08/31/2025 Family History Relationship Description Onset Age of this Age Resolved Age Notes LastModified by Organization Details LastModified Time Father Heart disease [id number] Not available 11/12/2022 18:59:57 Paternal Grandfather Heart disease [id number] Not available 11/12/2022 18:59:58 Paternal Grandmother Heart disease [id number] Not available 11/12/2022 18:59:58 Paternal Uncle Heart disease [id number] Not available 11/12/2022 18:59:58 Medical History Condition Response HEARTBURN / REFLUX Y HIGH CHOLESTEROL / HYPERLIPIDEMIA Y Immunizations Vaccine Type Date Status Note Provider Nam e and Address Organization Details Recorded Time Tdap 12/10/2023 completed Mary Mccurdy, [facility] [address], [address], [facility] 12/10/2023 20:28:58 Tdap 11/05/2013 completed Not Available [facility] 11/12/2022 19:01:40 MMR 02/08/1993 completed Adilia Ruelas NP [address], [address], [facility] 08/28/2025 10:59:15 MMR 03/02/1989 completed Adilia Ruelas NP [address], [address], [facility] 08/28/2025 10:59:15 MMR 04/19/1993 completed Adilia Ruelas NP [address], [address], [facility] 08/28/2025 10:59:15 DTP 11/17/1988 completed Adilia Ruelas NP [address], [address], [facility] 08/28/2025 10:59:15 DTP 02/08/1993 completed Adilia Ruelas NP [address], [address], [facility] 08/28/2025 10:59:15 DTP 02/14/1988 completed Adilia Ruelas, FASHION ADVISER [address], [place], [address], [facility] 08/28/2025 10:59:15 DTP 04/23/1990 completed Adilia Ruelas, FASHION ADVISER [address], [place], [address], [facility] 08/28/2025 10:59:15 DTP 06/16/1988 completed Adilia Ruelas, FASHION ADVISER [address], [place], [address], [facility] 08/28/2025 10:59:15 OPV, trivalent 02/08/1993 completed Adilia muse, FASHION ADVISER [address], [place], [address], [facility] 08/28/2025 10:59:15 OPV, trivalent 02/14/1988 completed Adilia muse, FASHION ADVISER [address], [place], [address], [facility] 08/28/2025 10:59:15 OPV, trivalent 04/23/1990 completed Adilia muse, FASHION ADVISER [address], [place], [address], [facility] 08/28/2025 10:59:15 OPV, trivalent 06/16/1988 completed Adilia muse, FASHION ADVISER [address], [place], [address], [facility] 08/28/2025 10:59:15 Hep B, adolescent or pediatric 02/22/1998 completed Adilia Ruelas, FASHION ADVISER [address], [place], [address], [facility] 08/28/2025 10:59:15 Hep B, adolescent or pediatric 08/10/1997 completed Adilia Ruelas, FASHION ADVISER [address], [place], [address], [facility] 08/28/2025 10:59:15 Hep B, adolescent or pediatric 09/07/1997 completed Adilia Ruelas, ROCIO [address] [facility],[address], [place], [address], [facility] 08/28/2025 10:59:15 Past Encounters Encounter ID Performer Location Encounter Start Date Encounter Closed Date Diagnosis/Indication Diagnosis SNOMED-CT Code Diagnosis ICD10 Code Diagnosis IMO Codes Diagnosis Note [id number] ALEXIS SENSINTAFF MD DIDI [facility] [address] [address] 08/31/2025 16:20:52 08/31/2025 16:52:43 Attention deficit hyperactivity disorder 407518806 F90.9 Takes dextroamph etamine-am phetamine 50-60 mg per day, dispensing x6 IR 10mg qd.Refilli ng approx every month.Agre eable to switching to 30 mg ER qam , 20mg IR q afternoon. HE will let me know how this is working for him.Contro lled substance agreement signed: 08/31/25.L ast UDS: 08/31/25.D iagnosed by DS, started on dextroamph etamine-am phetamine 12/2023 and has been increasing dose since then. Therapeuti c drug monitoring assay 53468185 Z51.81 901689 Overweight in adulthood with body mass index of 25 or more but less than 30 123084904 E66.3 Z68.28 4580602268 Pain in right thumb 1076 002476 494413 M79.[id number] Cantrell, would like a second opinion. Health Concerns Section Related Observation LastModified by Organization Detai ls LastModified Time None Recorded Concern Status LastModified by Organization Details LastModified Time None Recorded Payers Encounter Date Sequence Insurance Name Policy Number Policy Brooks Covered Member ID Brooks Member ID Guarantor Name 08/31/2025 1 [facility] [id number] Jm Ruggiero [id number] Jm Ruggiero Notes Date Note Type Note Provider Name and Address Organization Details Recorded Time 08/31/2025 text/html Pt presents for f/u ADHD medications.righ t hand pain at thumb joint, following with Dr Cantrell. He'd like to go to Dr. Jose Cruz Carvalho at [place]. 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 refilling approx every month. 0530 takes am dose.9780-8137 afternoon.When do you take meds:Sleep: finished harvesting. getting sleep ok. Adilia Ruelas, FASHION ADVISER [address] [facility],[address], [place], [address], [facility] 08/31/2025 17:02:19
[2025-09-26 11:46] VITALS: BP 137/73; PULSE 89; RESP 18; TEMP 36.9; O2SAT 100
== END 2025-09-26 12:12 | disposition home or self-care (01) ==
PROVIDERS: Emergency Provider Nurse Practitioner Family
DX: L23.7 Allergic contact dermatitis due to plants, except food (principal)
CPT/HCPCS: 96372; 99213; G0463; J2919